=== PATIENT | female | born 1960 | race Caucasian/White ===

== ENCOUNTER 2020-07-16 16:22 | Emergency (ER) | payer OTHER ==
[~2020-07-16] VITALS: Ht 165.1 cm; Wt 81.7 kg
[2020-07-16] MEDS ORDERED: PAROXETINE HCL30 MG PO (17:18)
[2020-07-16] MEDS ORDERED: ZESTRIL40 MG PO (17:19)
[2020-07-16] MEDS ORDERED: DICLOFENAC SODI75 MG PO (17:19)
[2020-07-16] MEDS ORDERED: XANAX1 MG PO (17:20)
[2020-07-16] MEDS ORDERED: KEFLEX500 M1 PO (20:19)
[2020-07-16] MEDS ORDERED: NORCO 5-325 TA1 EAC2 PO (20:24)
[2020-07-16 21:45] VITALS: BP 201/137
== END 2020-07-16 21:46 | disposition home or self-care (01) ==
LOC: ER 16:22
DX: S63.282A Dislocation of proximal interphalangeal joint of right middle finger, initial encounter (principal); S63.284A Dislocation of proximal interphalangeal joint of right ring finger, initial encounter; S63.286A Dislocation of proximal interphalangeal joint of right little finger, initial encounter; S61.216A Laceration without foreign body of right little finger without damage to nail, initial encounter; S61.212A Laceration without foreign body of right middle finger without damage to nail, initial encounter; S61.214A Laceration without foreign body of right ring finger without damage to nail, initial encounter; Z79.899 Other long term (current) drug therapy; W18.39XA Other fall on same level, initial encounter; Y93.89 Activity, other specified; Y92.89 Other specified places as the place of occurrence of the external cause; Y99.8 Other external cause status